=== PATIENT | male | born 1975 | race Caucasian/White ===

== ENCOUNTER 2023-09-23 20:55 | Emergency (ER) | payer OTHER, SELFPAY ==
[2023-09-23 21:10] VITALS: BP 176/99; PULSE 77; RESP 16; TEMP 36.9; O2SAT 99; BMI 33.7
[2023-09-23 21:48] VITALS: PULSE 76; O2SAT 97
[2023-09-23 21:49] VITALS: BP 171/90; PULSE 80; O2SAT 98
--- NOTE | 2023-09-23 21:56 | ED.GENADULT ---
HPI - General Adult General Chief complaint: Abdominal Pain Stated complaint: Abd px Time Seen by Provider: 09/23/23 21:48 Source: patient Mode of arrival: Ambulatory History of Present Illness HPI narrative: Patient is a 48-year-old male who is here for evaluation of upper abdominal discomfort. Last weekend the patient went out to eat. He stated that since that time he has had upper abdominal discomfort that he states feels like he was becoming bloated. It happens every time he eats or drinks anything. He has been having quite a bit of belching. No diarrhea. Describes the pain in the epigastric and left upper quadrant region. He stated that multiple other individuals that he was with the time have developed abdominal pain. He stated that he had a fever last evening. No urinary symptoms. Related Data Previous Rx's Medication Instructions Recorded sucralfate 100 mg/mL oral 10 ml PO QACHS #414 mL 09/23/23 suspension (Carafate) Review of Systems Constitutional Constitutional: Reports system reviewed and no additional complaints, except as documented Gastrointestinal Gastrointestinal: Reports system reviewed and no additional complaints, except as documented Genitourinary Genitourinary: Reports system reviewed and no additional complaints, except as documented Integumentary/Breasts Skin/Breast: Reports system reviewed and no additional complaints, except as documented Patient History Social History Smoking Status: Never smoker Smoking Status: Never smoker alcohol intake frequency: holidays/special occasions only Substance Use Type: does not use Exam Initial Vital Signs Initial Vital Signs: Vital Signs Temperature 98.4 F 09/23/23 21:10 Pulse Rate 77 09/23/23 21:10 Respiratory Rate 16 09/23/23 21:10 Blood Pressure 176/99 H 09/23/23 21:10 Pulse Oximetry 99 09/23/23 21:10 Oxygen Delivery Method Room Air 09/23/23 21:10 GI Inspection: normal to inspection Palpation: soft, No firm, No guarding and No tender Skin General: no rashes or lesions noted Neuro General: patient alert, patient awake, patient oriented x3 and moves all extremities Course Orders Ordered: ED Orders 09/23/23 21:45 Complete Blood Count AUTO DIFF Stat Comprehensive Metabolic Panel Stat Lipase Stat 09/23/23 22:00 XR abdomen 1V Stat Discontinued Medications Sucralfate (Sucralfate 1 Gm Tablet) 1 gm PO NOW ONE Stop: 09/23/23 23:42 Last Admin: 09/23/23 23:49 Dose: 1 gm Documented By: AB Vital Signs Vital signs: Vital Signs - 8 hr 09/23/23 21:48 09/23/23 21:49 09/23/23 21:49 Pulse Rate 76 80 Blood Pressure 171/90 H Pulse Oximetry 97 98 09/23/23 22:00 09/23/23 22:00 09/23/23 22:30 Pulse Rate 84 Blood Pressure 152/85 H 145/89 H Pulse Oximetry 97 09/23/23 22:30 Pulse Rate 88 Blood Pressure Pulse Oximetry 98 Medical Decision Making Lab Data Lab results reviewed: Yes I reviewed the patient's lab results. 09/23/23 21:45 09/23/23 21:45 Labs: Lab Results 09/23/23 Range/Units 21:45 WBC 9.2 (4.5-11.0) X10^3/uL RBC 5.78 (4.5-5.9) X10^6/uL Hgb 16.0 (13.5-17.5) g/dL Hct 47.1 (41-53) % MCV 81.5 (80-100) fL MCH 27.7 (26-34) PG MCHC 34.0 (30-36) % RDW 13.6 (11.6-14.8) % Plt Count 328 (150-400) X10^3/uL Neut % (Auto) 53.4 (50-75) % Lymph % (Auto) 26.5 (25-40) % Wilkinson % (Auto) 12.8 (3-14) % Eos % (Auto) 6.6 H (2-4) % Baso % (Auto) 0.7 (0-2) % Neut # (Auto) 4900 (0798-0965) /uL Lymph # (Auto) 2400 (3614-1224) /uL Wilkinson # (Auto) 1200 H (0-900) /uL Eos # (Auto) 600 H (0-450) /uL Baso # (Auto) 100 (0-100) /uL Sodium 140 (137-145) mmol/L Potassium 3.6 (3.4-5.1) mmol/L Chloride 103 (98-107) mmol/L Carbon Dioxide 31 (22-32) mmol/L BUN 16 (9-20) mg/dL Creatinine 0.86 (0.66-1.25) mg/dL Estimated GFR > 60 (>60) mL/min BUN/Creatinine Ratio 18.6 (6-22) Glucose 116 H (70-100) mg/dL Calcium 10.1 (8.4-10.2) mg/dL Total Bilirubin 0.7 (0.2-1.3) mg/dL AST 29 (17-59) IU/L ALT 41 (<50) IU/L Alkaline Phosphatase 88 (38-126) U/L Total Protein 7.8 (6.3-8.2) g/dL Albumin 4.5 (3.5-5.0) g/dL Globulin 3.3 (1.7-4.1) g/dL Albumin/Globulin Ratio 1.4 (1.0-2.8) Lipase 59 (23-300) U/L Imaging Data Abdominal x-ray: Radiologist's Impression: PROCEDURE: XR ABDOMEN 1V INDICATIONS: Upper abdominal pain TECHNIQUE: One view of the abdomen acquired. COMPARISON: None. FINDINGS: Surgical changes and devices: None. Bowel: Bowel gas pattern is nonobstructive. Soft tissues: No suspicious abdominal calcifications. Visualized solid organ contours appear normal in size. Bones: No suspicious bony lesions. IMPRESSION: No acute abnormality. MDM Narrative Medical decision making narrative: Labs showed no leukocytosis. Normal LFTs. Normal lipase. Abdominal x-ray is unremarkable. Low suspicion that this is pancreatitis/bowel obstruction/gallbladder pathology. Have high suspicion that this is gastroesophageal reflux disease and potentially a gastric ulcer. Patient understands that this can not be definitively diagnosed here in the emergency department. Plan will be to have him start on a course of a proton pump inhibitor for the next 14 days. Also send him home with a prescription for Carafate. Recommended a bland diet. Recommended following up with the primary provider as he may need further imaging studies such as a upper endoscopy. Patient was given return precautions. He expressed understanding and agreement. Discharge Plan Departure Patient Disposition: Home Clinical Impression: Abdominal pain Instructions: DI for Gastroesophageal Reflux Disease (GERD), DI for Abdominal Pain-Adult Activity Restrictions/Additional Instructions: I do recommend that you start on a regimen of a class of medicines caught a proton pump inhibitor. Medications include Nexium/omeprazole/has a omeprazole/Prilosec. These are 1 time a day medication. You can use the Carafate to begin with like we discussed. I do recommend that you follow-up with a primary care provider. Prescriptions: New sucralfate [Carafate] 100 mg/mL suspension 10 ml PO QACHS Qty: 414 0RF Referrals: Miscellaneous,Doctor, [Primary Care Provider] - Stand Alone Forms: Patient Portal/API
[2023-09-23 22:00] VITALS: BP 152/85; PULSE 84; O2SAT 97
--- NOTE | 2023-09-23 22:00 | DI.RAD.S_ITS ---
PROCEDURE: XR ABDOMEN 1V INDICATIONS: Upper abdominal pain TECHNIQUE: One view of the abdomen acquired. COMPARISON: None. FINDINGS: Surgical changes and devices: None. Bowel: Bowel gas pattern is nonobstructive. Soft tissues: No suspicious abdominal calcifications. Visualized solid organ contours appear normal in size. Bones: No suspicious bony lesions. IMPRESSION: No acute abnormality. Approved by: Jackie Banuelos M.D.,Ph.D. on 09/23/2023 at 22:56
[2023-09-23 22:22] LABS: Add Manual Diff / Slide Review NO; Basophils Absolute Auto 100 /uL (0-100); Basophils Percent Auto 0.7 % (0-2); Eosinophils Absolute Auto 600 /uL (0-450); Eosinophils Percent Auto 6.6 % (2-4); Hematocrit 47.1 % (41-53); Lymphocytes Absolute Auto 2400 /uL (1100-4500); Lymphocytes Percent Auto 26.5 % (25-40); Mean Corpuscular Hemoglobin 27.7 PG (26-34); Mean Corpuscular Volume 81.5 fL (80-100); Monocytes Absolute Auto 1200 /uL (0-900); Monocytes Percent Auto 12.8 % (3-14); Neutrophils Absolute Auto 4900 /uL (1500-7000); Neutrophils Percent Auto 53.4 % (50-75); Platelet Count 328 X10^3/uL (150-400); Red Blood Cell Count 5.78 X10^6/uL (4.5-5.9); Red Cell Distribution Width 13.6 % (11.6-14.8); White Blood Cell Count 9.2 X10^3/uL (4.5-11.0)
[2023-09-23 22:27] LABS: Alanine Aminotransferase 41 IU/L (<50); Albumin 4.5 g/dL (3.5-5.0); Albumin Globulin Ratio 1.4 (1.0-2.8); Alkaline Phosphatase 88 U/L (38-126); Aspartate Aminotransferase 29 IU/L (17-59); BUN Creatinine Ratio 18.6 (6-22); Bilirubin Total 0.7 mg/dL (0.2-1.3); Blood Urea Nitrogen 16 mg/dL (9-20); Calcium 10.1 mg/dL (8.4-10.2); Carbon Dioxide 31 mmol/L (22-32); Chloride 103 mmol/L (98-107); Estimated Glomerular Filt Rate > 60 mL/min (>60); Globulin 3.3 g/dL (1.7-4.1); Glucose 116 mg/dL (70-100); HEMOLYSIS < 15 (0-50); Lipase 59 U/L (23-300); Potassium 3.6 mmol/L (3.4-5.1); Sodium 140 mmol/L (137-145); Total Protein 7.8 g/dL (6.3-8.2)
[2023-09-23 22:30] VITALS: BP 145/89; PULSE 88; O2SAT 98
[2023-09-23] MEDS: SUCRALFATE 1 GM TABLET PO (23:49)
== END 2023-09-23 23:50 | disposition home or self-care (01) ==
PROVIDERS: Emergency Provider Emergency Medicine
DX: R10.10 Upper abdominal pain, unspecified (principal)
CPT/HCPCS: 36415; 74018; 80053; 83690; 85025; 99283; 99284